=== PATIENT | female | born 1990 | race Two or more races ===

== ENCOUNTER 2019-10-27 23:50 | Emergency (ER) | payer OTHER ==
[~2019-10-27] VITALS: Ht 165.1 cm; Wt 81.6 kg
[2019-10-28] MEDS ORDERED: ELMIRON100 MG (00:39)
== END 2019-10-28 03:38 | disposition home or self-care (01) ==
LOC: ER 23:50
DX: E86.0 Dehydration (principal); E87.8 Other disorders of electrolyte and fluid balance, not elsewhere classified; R19.7 Diarrhea, unspecified; R11.0 Nausea